=== PATIENT | female | born 1960 | race Caucasian/White ===

== ENCOUNTER → 2017-05-08 | Outpatient (CLI) | payer BC ==
--- NOTE | 2017-05-10 10:59 | MM ---
Reason for exam: screening (asymptomatic). Last mammogram was performed 1 year and 1 month ago. History: Patient is postmenopausal. Took hormonal contraceptives for 3 years beginning at age 20. Physical Findings: A clinical breast exam by your physician is recommended on an annual basis and results should be correlated with mammographic findings. MG Screening Mammo w CAD Bilateral CC and MLO view(s) were taken. Prior study comparison: April 22, 2016, bilateral MG screening mammo w CAD. April 17, 2015, bilateral MG screening mammo w CAD. December 26, 2013, CAD bilateral diagnostic mammogram. The breast tissue is heterogeneously dense. This may lower the sensitivity of mammography. At posterior depth a 5mm asymmetry approximately 7.7cm from nipple outer left breast. A left breast 9mm focal asymmetry at middle depth 3-4cm from nipple. ASSESSMENT: Incomplete: need additional imaging evaluation, BI-RAD 0 RECOMMENDATION: Special view mammogram of the left breast. If lesion persists on supplemental views, image directed ultrasound is recommended. [facility] will attempt to contact patient to return for supplemental views and ultrasound if indicated.
== END | disposition home or self-care (01) ==
LOC: RADMAMWWP 16:44
PROVIDERS: ATTEND Obstetrics & Gynecology
DX: Z12.31 Encounter for screening mammogram for malignant neoplasm of breast (principal)

== ENCOUNTER → 2017-06-08 | Outpatient (CLI) | payer BC ==
--- NOTE | 2017-06-09 07:55 | MM ---
Reason for exam: additional evaluation requested from abnormal screening. Last mammogram was performed 1 month ago. History: Patient is postmenopausal. Took hormonal contraceptives for 3 years beginning at age 20. Physical Findings: Nurse did not find any significant physical abnormalities on exam. MG 3D Work Up W/Cad LT CC and MLO view(s) were taken of the left breast. Prior study comparison: May 08, 2017, bilateral MG screening mammo w CAD. April 22, 2016, bilateral MG screening mammo w CAD. April 17, 2015, bilateral MG screening mammo w CAD. December 26, 2013, CAD bilateral diagnostic mammogram. The breast tissue is heterogeneously dense. This may lower the sensitivity of mammography. Focal asymmetry appear to persist centrally on the 3D MLO and LM views. It may correspond to a far lateral asymmetry on CC view. Ultrasound is recommended. These results were verbally communicated with the patient and result sheet given to the patient on 06/08/17. ASSESSMENT: Incomplete: need additional imaging evaluation, BI-RAD 0 RECOMMENDATION: Ultrasound of the left breast. (8-4 o'clock)
--- NOTE | 2017-06-09 07:57 | USB ---
Reason for exam: additional evaluation requested from abnormal screening. History: Patient is postmenopausal. Took hormonal contraceptives for 3 years beginning at age 20. US Breast Workup Limited LT Left breast ultrasound demonstrates a 0.4 x 0.5 x 0.2cm oval, hypoechoic lesion at 11 o'clock but located deep, may be cyst. A 6 month follow up recommended. No other solid or cystic lesion seen. Scanning from 8-4 o'clock. These results were verbally communicated with the patient and result sheet given to the patient on 06/08/17. ASSESSMENT: Probably benign, BI-RAD 3 RECOMMENDATION: Follow-up diagnostic mammogram and ultrasound of the left breast in 6 months.
== END | disposition home or self-care (01) ==
LOC: RADMAMWWP 13:38
PROVIDERS: ATTEND Obstetrics & Gynecology
DX: R92.8 Other abnormal and inconclusive findings on diagnostic imaging of breast (principal)
CPT/HCPCS: 76642; G0206; G0279